=== PATIENT | male | born 1995 ===

== ENCOUNTER 2018-04-20 12:41 | Emergency (ER) | payer SELFPAY ==
[2018-04-20] MEDS ORDERED: DIPHTH,PERTUSS(ACELL),TET 0.5 ML DISP.SYRIN IM ONE ×2 (12:43→13:29)
--- NOTE | 2018-04-20 12:43 | PDOC ---
History of Present Illness - General Chief Complaint: Injury Stated Complaint: LEFT HAND CUT Time Seen by Provider: 04/20/18 12:42 History Source: Patient Exam Limitations: No Limitations - History of Present Illness Initial Comments: Pt is a 22 yo M, with no significant PMH, who is presenting after a laceration to the L thumb, immediately after the incident. 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 Pt has not taken any medication for pain before presenting, and bleeding was controlled with a clean towel. Pt states his last tetanus shot was in [place] ~7 years ago. Pt denies any recent fevers/chills, headache, vision changes, syncope, chest pain, palpitations, SOB, nausea/vomiting, abdominal pain, urinary symptoms, diarrhea/ constipation, or leg swelling. Social: Pt denies any cigarette, alcohol, or drug use. Pt denies any recent travel or sick contacts. Surgical: no relevant history. Family: no relevant history. 04/20/18 13:50 Past History - Travel Traveled outside of the country in the last 30 days: No Close contact w/someone who was outside of country & ill: No - Past Medical History Allergies/Adverse Reactions: Allergies Allergy/AdvReac Type Severity Reaction Status Date / Time No Known Allergies Allergy Verified 04/20/18 12:42 Home Medications: Ambulatory Orders NK [No Known Home Medication] 04/20/18 Diabetes: No HTN: No Hypercholesterolemia: No - Surgical History Orthopedic Surgery: No Review of Systems - Review of Systems Able to Perform ROS?: Yes Is the patient limited Citizen [place] proficient: No Constitutional: No: Chills, Diaphoresis, Fever, Weakness HEENTM: No: Recent change in vision Respiratory: No: Cough, Shortness of Breath Cardiac (ROS): No: Chest Pain, Lightheadedness, Chest Tightness ABD/GI: No: Diarrhea, Nausea, Poor Appetite, Poor Fluid Intake, Vomiting Musculoskeletal: Yes: See HPI. No: Back Pain, Joint Pain, Muscle Pain, Muscle Weakness Integumentary: Yes: See HPI. No: Bruising, Rash Neurological: No: Headache, Numbness, Paresthesia, Weakness Psychiatric: No: Change in Appetite Endocrine: No: Change in Weight Hematologic/Lymphatic: No: Anemia, Blood Clots, Easy Bleeding, Easy Bruising All Other Systems: Reviewed and Negative *Physical Exam - Physical Exam General Appearance: Yes: Nourished, Appropriately Dressed. No: Apparent Distress HEENT: positive: EOMI, ADELFO, Normal ENT Inspection, Normal Voice, Pharynx Normal , Hearing Grossly Normal. negative: Scleral Icterus (R), Scleral Icterus (L), Pharyngeal Erythema, Tonsillar Exudate, Tonsillar Erythema, Rhinorrhea Neck: positive: Trachea midline, Supple. negative: Tender, Rigid, Lymphadenopathy (R), Lymphadenopathy (L) Respiratory/Chest: positive: Lungs Clear, Normal Breath Sounds. negative: Chest Tender, Respiratory Distress, Accessory Muscle Use, Crackles, Wheezing Cardiovascular: positive: Regular Rhythm, Regular Rate, S1, S2. negative: Edema , JVD, Murmur Vascular Pulses: Carotid (R): 4+, Carotid (L): 4+ Comments:: Radial pulses +4 04/20/18 13:55 Gastrointestinal/Abdominal: positive: Normal Bowel Sounds, Flat, Soft. negative : Tender, Organomegaly, Guarding, Rebound Rectal Exam: positive: deferred Lymphatic: negative: Adenopathy, Tenderness Musculoskeletal: positive: Normal Inspection. negative: CVA Tenderness Extremity: positive: Normal Capillary Refill, Normal Inspection, Normal Range of Motion, Pelvis Stable. negative: Tender, Cyanosis, Pedal Edema Integumentary: positive: Normal Color, Dry, Warm, Other (Linear laceration ~1.5 cm to L palmar thumb along thenar muscle, clean, superficial, no foreign debris present. Strength and sensation intact. Minimal bleeding controlled with pressure. ). negative: Swelling, Ecchymosis Neurologic: positive: manager park II-XII NML intact, Fully Oriented, Alert, Normal Mood/ Affect, Normal Response, Motor Strength 5/5. negative: Numbness, Sensory Deficit Procedures - Laceration/Wound Repair Left Volar Finger 1st digit Wound Length: to 2.5 cm Wound Explored: clean Wound's Depth, Shape: superficial, linear Irrigated w/ Saline: Yes Betadine Prep: Yes Anesthesia: 1% Lidocaine Amount of Anesthetic (ccs): 3 Wound Debrided: minimal Wound Repaired With: Sutures Suture Size/Type: 5:0 Number of Sutures: 7 Layer Closure: No Number of Deep Layer Sutures: 0 Sterile Dressing Applied: Yes (sterile dressing with bacitracin ointment) Splint Applied: No Sling Applied: No Progress: Pt was cleaned first with betadine rinse, then pressure washed with sterile saline ~40 cc. Area was numbed with 1% lidocaine (no epinephrine). 7 sutures were applied (size 5.0). Strength and sensation intact pre and post sutures. Radial pulse strong. 04/20/18 13:44 Medical Decision Making - Medical Decision Making Pt was seen at bedside, also will be seen by attending Dr. Guevara. Pt presenting after a laceration to the L thumb, immediately after the incident. 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 Pt has not taken any medication for pain before presenting and bleeding was controlled with a clean towel. Pt states his last tetanus shot was in [place] ~7 years ago. PE showed clean, superficial, linear laceration to the palmar aspect of the thumb along the hypothenar muscle. ROM intact, no decreased sensation in radial , medial, or ulnar regions. Strong radial pulse. Superficial laceration, does not appear to involve tendons. ROM of the thumb intact, no decreased sensation. Providing tetanus booster. Pt denied pain control at this time. Will continue to reassess pt and monitor for symptomatic improvement. 04/20/18 12:55 Laceration was repaired (see procedure note); good strength and sensation intact. ROM preserved in thumb, with strong radial pulse. Pt continued to deny pain medication. Pt can be discharged to home with follow-up. Pt advised to follow-up with PCP in 1-2 days. Strict return precautions provided with pt understanding. 04/20/18 13:47 *DC/Admit/Observation/Transfer Diagnosis at time of Disposition: Laceration of left thumb Qualifiers: Encounter type: initial encounter Damage to nail status: without damage Foreign body presence: without foreign body Qualified Code(s): S61.012A - Laceration without foreign body of left thumb without damage to nail, initial encounter - Discharge Dispostion Disposition: HOME Condition at time of disposition: Good Decision to Admit order: No - Referrals Referrals: [facility] [place] [Provider Group] - Patient Instructions Printed Discharge Instructions: DI for Laceration Repair Additional Instructions: You were seen in the ER today for a cut to your left thumb, which was closed with sutures. You were also provided a tetanus booster. Please follow-up with your primary care doctor within 1-2 days to discuss your visit and make sure your symptoms have improved. Please return to the ER if you have any worsening pain, redness or drainage from the site, development of fevers or chills, loss of consciousness, inability to tolerate food or fluids, or any other concerns. Please return to the ER in 7 days for removal of your sutures. You can wash your hand with warm soap and water after 48 hours. Please keep it covered for the first 48 hours. Please keep your hand covered while at work. Please apply antibiotic ointment (bacitracin/neosporin) twice per day. Print Language: TAMAZIGHT - Post Discharge Activity
[2018-04-20 12:48] VITALS: BP 161/101; PULSE 74; TEMP 98; BMI 25.8
--- NOTE | 2018-04-20 13:23 | PDOC ---
Attending Attestation - Resident Resident Name: Violetta Adler - ED Attending Attestation I have performed the following: I have examined & evaluated the patient, The case was reviewed & discussed with the resident, I agree w/resident's findings & plan, Exceptions are as noted - HPI HPI: 04/20/18 13:21 22y M no pmhx presens with complaint of laceration pt sustained a laceration to the base of the L thumb, no finger weakness, numbness/tingling/weakness no other injuries last tetnaus 7 years ago L hand exam: approx 1.5cm superficial laceration along lateal aspect of thener emenince no active bleeding n/v intact sensation/motor intact no tendndons visible after exploration will close with sutures will update tetanus return for suture removal 04/20/18 13:38 repaired with good approximation using 7 simple interrupted sutures by Dr. Adler
== END 2018-04-20 13:43 | disposition home or self-care (01) ==
LOC: FER 12:41
CPT/HCPCS: 90715; 99281-25